=== PATIENT | male | born 1970 | race African-American/Black ===

== ENCOUNTER 2016-05-23 23:00 | Emergency (ER) | payer MEDICARE ==
[~2016-05-23 23:00] MED LIST: BACTRIM DS TAB1 EACH PO; NEURONTIN800 MG PO; ROXICODONE30 MG PO; VISTARIL25 MG PO
== END 2016-05-24 02:50 | disposition home or self-care (01) ==
LOC: ER 23:00
DX: H11.31 Conjunctival hemorrhage, right eye (principal); Y04.0XXA Assault by unarmed brawl or fight, initial encounter; F17.210 Nicotine dependence, cigarettes, uncomplicated; Z79.899 Other long term (current) drug therapy
CPT/HCPCS: 70486; 99283; 99283-25